=== PATIENT | male | born 1945 | race Caucasian/White ===

== ENCOUNTER 2017-05-19 12:29 | Outpatient (CLI) | payer MEDICARE | END 2017-05-19 12:30 | disposition home or self-care (01) | LOC: CP 12:29 | PROVIDERS: ATTEND Family Medicine | DX: R06.02 Shortness of breath (principal); R53.1 Weakness; R53.83 Other fatigue; I08.3 Combined rheumatic disorders of mitral, aortic and tricuspid valves | CPT/HCPCS: 93306 ==

== ENCOUNTER 2017-08-25 06:00 | Day surgery (SDC) | payer MEDICARE, OTHER ==
[2017-08-24 15:53] VITALS: BMI 28.7
[2017-08-25] MEDS ORDERED: Lidocaine 1% (PF) 30 ML VIAL ONE (06:28)
[2017-08-25 06:57] LABS: Cardiac Risk 2.9 (Less than 4.5)
[2017-08-25] MEDS ORDERED: Diazepam 5 MG TAB ONE (07:43)
[2017-08-25] MEDS ORDERED: Heparin 10,000 UNITS/1 ML VIAL ONE (07:55)
[2017-08-25] MEDS ORDERED: Verapamil 5 MG/2 ML VIAL ONE (07:55)
[2017-08-25] MEDS ORDERED: Nitroglycerin 100MG/250ML BOT 250 ML ONE (07:55)
[2017-08-25] MEDS ORDERED: Iopamidol 370 76% 100 ML VIAL ONE (11:07)
== END 2017-08-25 13:50 | disposition home or self-care (01) ==
LOC: CCL 06:00
PROVIDERS: ATTEND Internal Medicine Cardiovascular Disease
PROC: 4A023N8 Measurement of Cardiac Sampling and Pressure, Bilateral, Percutaneous Approach (ICD-10-PCS; principal; 2017-08-25)
PROC: B2111ZZ Fluoroscopy of Multiple Coronary Arteries using Low Osmolar Contrast (ICD-10-PCS; 2017-08-25)
DX: I25.10 Atherosclerotic heart disease of native coronary artery without angina pectoris (principal); Z79.82 Long term (current) use of aspirin; Z79.899 Other long term (current) drug therapy
CPT/HCPCS: 80061; 93454; C1769 ×2; J1644; J2001

== ENCOUNTER 2018-09-15 13:53 | Outpatient (CLI) | payer MEDICARE, OTHER ==
--- NOTE | 2018-09-15 15:04 | BD ---
DEXA BONE DENSITY EXAM: COMPARISON: None. HISTORY: A 72-year-old male with osteoporosis. FINDINGS: Lumbar Spine: BMD (g/cm2) L1 0.820 T-Score: -2.3 L2 0.819 T-Score: -2.5 L3 0.887 T-Score: -2.0 L4 0.917 T-Score: -1.6 L1-L4 0.866 T-Score: -2.0 Femoral Neck: 0.613 T-Score: -2.3 Total Femur: 0.767 T-Score: -1.8 Impression: Osteopenia. This patient has a 10-year WHO fracture risk for a major osteoporotic fracture of 9.2% a nd of a hip fracture of 3.1%. POS: TPC
== END 2018-09-15 13:54 | disposition home or self-care (01) ==
LOC: BICMAMMO 13:53
PROVIDERS: ATTEND Psychiatry & Neurology Neurology
DX: M81.0 Age-related osteoporosis without current pathological fracture (principal); M85.89 Other specified disorders of bone density and structure, multiple sites
CPT/HCPCS: 77080

== ENCOUNTER 2018-11-21 16:57 | Inpatient (IN) | payer MEDICARE, OTHER ==
[~2018-11-21 16:57] MED LIST: Heparin 1,000 UNITS/ML VIAL ONE; ISOVUE-370 76%-LOCM 1 ML ONE
[2018-11-21 18:34] LABS: Hemoglobin 12.2 g/dL (14.0-18.0); Mean Corpuscular HGB CONC 32.7 g/dL (32.0-36.0); Mean Corpuscular Hemoglobin 33.3 pg (27.0-31.0); Mean Platelet Volume 8.9 fL (7.4-10.4); Platelet Count 141 thou/uL (130-400); RBC Distribution Width 14.1 % (11.5-14.5); Red Blood Cell (RBC) Count 3.67 mill/uL (4.70-6.10); White Blood Cell (WBC) Count 11.4 thou/uL (4.8-10.8)
[2018-11-21 18:47] LABS: Band 28 % (5-11); Dohle Bodies SLIGHT; Lymphocytes 2 % (21-51); MDiff Complete? YES; Metamyelocyte 8 % (0-0); Monocytes 2 % (0-10); Neutrophil 60 % (42-75); Platelet Morphology Comment Appears Adequate; Polychromasia SLIGHT = 2-3 cells (100X) (0-2/hpf); Toxic Granulation SLIGHT; Vacuoles SLIGHT
[2018-11-21 19:08] LABS: ALT (SGPT) 55 U/L (8-55); AST (SGOT) 57 U/L (5-34); Alkaline Phosphatase 181 U/L (40-150); Anion Gap 18 mmol/L (10-20); BUN (Urea Nitrogen) 23 mg/dL (8.4-25.7); CK (CPK) 29 U/L (30-200); Calc. Creatinine Clearance 0 mL/min (70-130); Calcium 8.6 mg/dL (7.8-10.44); Carbon Dioxide 19 mmol/L (23-31); Chloride 102 mmol/L (98-107); Estimated GFR-MDRD 79; Glucose 112 mg/dL (83-110); Potassium 4.9 mmol/L (3.5-5.1); Sodium 134 mmol/L (136-145)
[2018-11-21 19:12] LABS: Bilirubin Moderate (Negative); Blood, Urine Large (Negative); Clarity TURBID (Clear); Glucose, Urine (Dipstick) Negative (Negative); Leukocyte Large (Negative); Nitrite Positive (Negative); Protein, Urine (Dipstick) 100 mg/dL (Neg-Trace)
[2018-11-21 19:17] LABS: Bacteria/HPF 4+ HPF (None Seen); Squamous Epithelial 0-3 HPF (0-3); WBC/HPF Greater Than 50 HPF (0-3)
[2018-11-21 19:21] LABS: Pathc Cast-AUWi Flag 9.09 (0-2.49)
[2018-11-21 19:31] LABS: Hyaline Casts/LPF 0-3 HYALINE CAST LPF (0-3 Hyaline)
--- NOTE | 2018-11-21 19:45 | RAD ---
EXAM: 3 views of the right foot HISTORY: Foot pain and sepsis COMPARISON: None FINDINGS: 3 views of the right foot shows no evidence of acute fracture or dislocation. No soft tissu e swelling is seen. Degenerative changes are seen in the DIP joint of the second toe and in the interphalangeal joint of the small toe. IMPRESSION: No evidence of acute osseous abnormality.
[2018-11-21] MEDS ORDERED: cefTRIAXone\\ROCEPHIN 1 GM VIAL ONE (20:22)
--- NOTE | 2018-11-21 21:55 | ULT ---
EXAM: Right lower extremity venous ultrasound HISTORY: Right lower extremity pain and edema for 2 weeks COMPARISON: None TECHNIQUE: Multiplanar grayscale and color Doppler images were obtained in a right lower extremity ve nous ultrasound. Spectral analysis of the Doppler waveforms were performed. FINDINGS: The common femoral vein, profunda femoral vein, superficial femoral vein, and popliteal vei n are normal in appearance without visible thrombus. These vessels demonstrate normal compression, flow, and augmentation. The posterior tibial vein and greater saphenous vein are patent without evidence of thrombus. IMPRESSION: No evidence of DVT.
--- NOTE | 2018-11-21 22:27 | CT ---
CT Abdomen Pelvis W Con: 11/21/2018 12:00 AM CLINICAL INFORMATION: Feet swelling and back pain since Wednesday; abdominal bloating COMPARISON: None. TECHNIQUE: Multiple contiguous axial images were obtained and a CT of the abdomen and pelvis with IV contrast. Oral contrast was administered. Coronal reformats were performed. FINDINGS: Lower Chest: Moderate hiatal hernia. Otherwise, within normal limits. Abdomen: Liver: within normal limits. Bile Ducts: Normal caliber. Gallbladder: Absent Pancreas: within normal limits. Spleen: within normal limits. Adrenals: within normal limits. Kidneys: 6.9 cm hypodensity emanating from the right kidney likely represents a cyst. Pelvis: Reproductive Organs: No pelvic masses. Ureters: within normal limits. Bladder: within normal limits. Peritoneum: No ascites or free air, no fluid collection. Bowel: Normal caliber. Scattered diverticula in the colon. There is subtle stranding changes adjacent to some of the diverticula in the left colon, likely secondary to mild acute diverticulitis. Mesentery and Retroperitoneum: No enlarged mesenteric or retroperitoneal lymph nodes. Vessels: Atherosclerotic calcifications in the aorta Abdominal Wall: within normal limits. Bones: Degenerative changes in the spine. IMPRESSION: 1. Acute diverticulitis 2. Right renal cyst 3. Hiatal hernia
--- NOTE | 2018-11-21 23:06 | PDOC.FPRHP ---
- History of Present Illness Chief Complaint: Back Pain and inability to walk History of Present Illness: 72 y/o white male patient, with a Hx of cholecystitis X2 months ago, S/P cholecystectomy, COPD and Myasthenia Gravis, presents with X2 days of debilitating back pain. He states the pain is a 9/10, non-radiating pain in his bilateral lower back. The pain is alleviated by lying flat, and exacerbated by any movement. While lying in the ED bed, his pain is a 0/10. Patient complains of bilateral lower extremity swelling that started Wednesday morning, and alleviated with elevation of his legs. He has taken tramadol and a muscle relaxant for the back pain. He denies any abdominal pain, nausea, vomiting, or diarrhea. Last BM was yesterday, and was normal. Patient denies any bloody stools. He complains of feeling bloated in his abdomen. Denies any chest pain. Complains of a baseline shortness of breath that he always has. He also complains of a burning sensation upon urination. The patient was admitted for Cholecystitis while in [place], September 28. He was in the hospital there for X10 days, eventually requiring a cholecystectomy. He was septic and placed in a medically induced coma while there. A physician placed him on diflucan while there to treat a suspected fungal infection of the right foot. Patient is still on Diflucan. October 21 he was admitted to in patient rehab here at [facility], and discharged from there on October 31. ED Course: Patient was fluid resuscitated with 2L NS and given [address] abdomen showed non-complicated acute diverticulitis. UA revealed UTI, cultures ordered. - Allergies/Adverse Reactions Allergies Allergy/AdvReac Type Severity Reaction Status Date / Time No Known Allergies Allergy Verified 08/24/17 15:53 - Home Medications Medication Instructions Recorded Confirmed Type Aspirin [Ecotrin] 81 mg PO DAILY 08/24/17 11/22/18 History Cholecalciferol (Vitamin D3) 1,000 unit PO DAILY 08/24/17 11/22/18 History [Vitamin D3] Cyanocobalamin (Vitamin B-12) 2,500 mcg PO DAILY 08/24/17 11/22/18 History [Vitamin B12] Magnesium 100 mg PO DAILY 08/24/17 11/22/18 History [place]-3 Fatty Acids/Fish Oil [Fish 1 cap PO DAILY 08/24/17 11/22/18 History Oil 1,000 mg Capsule] Pantoprazole [Protonix] 40 mg PO BID 08/24/17 11/22/18 History Simvastatin [Zocor] 40 mg PO HS 08/24/17 11/22/18 History predniSONE 60 mg PO ASDIR 08/24/17 11/22/18 History Carvedilol 3.125 mg PO BID 11/22/18 11/22/18 History - History PMHx: COPD, Myasthenia Gravis, Shingles, CAD PSHx: Cholecystectomy 2019, Aortic Valve Replacement 15 months ago, with Thymectomy. Bilateral knee surgery, R-shoulder surgery. Coronary artery stent in 2003 FHx: Social: lifetime non-smoker. Drinks 2-3 glasses of wine, 2-3 times weekly. Denies any recreational drug use now or in the past. - Review of Systems General: reports: fatigue. denies: weight/appetite/sleep changes Eyes: denies: eye pain ENT: denies: nasal congestion Respiratory: reports: shortness of breath. denies: congestion Cardiovascular: reports: edema. denies: chest pain Gastrointestinal: denies: nausea, vomiting, diarrhea, constipation, abdominal pain, GI bleeding Genitourinary: reports: dysuria Musculoskeletal: reports: pain, tenderness, stiffness, swelling Neurological: reports: weakness. denies: seizure - Vital signs BP: [105/67] HR: [84] RR: [22] Tmax: [98.3] Pox: [95]% on [RA] Wt: [] - Physical Exam Constitutional: NAD, awake, alert and oriented, well developed HEENT: normocephalic and atraumatic, PERRLA -HEENT: scleral icterus present Neck: supple, trachea midline Chest: no-tender to palpation, no lesions Heart: RRR, normal S1/S2 Lungs: CTAB, no respiratory distress, good air movement Abdomen: bowel sounds present -Abdomen: Distended abdomen. Tenderness to deep palpation of RLQ and LLQ. Musculoskeletal: normal structure, normal tone Neurological: no focal deficit Skin: no rash/lesions, capillary refill <2 seconds -Skin: jaundice Heme/Lymphatic: no unusual bruising or bleeding Psychiatric: normal mood and affect, intact recent and remote memory FMR H&P: Results - Labs Result Diagrams: 11/22/18 04:53 11/22/18 04:53 Lab results: WBC 11.4 thou/uL (4.8-10.8) H 11/21/18 18:11 Hgb 12.2 g/dL (14.0-18.0) L 11/21/18 18:11 Hct 37.3 % (42.0-52.0) L 11/21/18 18:11 MCV 102.0 fL (78.0-98.0) H 11/21/18 18:11 Plt Count 141 thou/uL (130-400) 11/21/18 18:11 Band Neuts % (Manual) 28 % (5-11) H 11/21/18 18:11 Sodium 134 mmol/L (136-145) L 11/21/18 18:11 Potassium 4.9 mmol/L (3.5-5.1) 11/21/18 18:11 Chloride 102 mmol/L (98-107) 11/21/18 18:11 Carbon Dioxide 19 mmol/L (23-31) L 11/21/18 18:11 BUN 23 mg/dL (8.4-25.7) 11/21/18 18:11 Creatinine 0.94 mg/dL (0.7-1.3) 11/21/18 18:11 Glucose 112 mg/dL (83-110) H 11/21/18 18:11 Lactic Acid 3.6 mmol/L (0.5-2.2) H 11/21/18 19:01 Calcium 8.6 mg/dL (7.8-10.44) 11/21/18 18:11 Total Bilirubin 3.0 mg/dL (0.2-1.2) H 11/21/18 18:11 AST 57 U/L (5-34) H 11/21/18 18:11 ALT 55 U/L (8-55) 11/21/18 18:11 Alkaline Phosphatase 181 U/L (40-150) H 11/21/18 18:11 Creatine Kinase 29 U/L (30-200) L 11/21/18 18:11 Serum Total Protein 6.0 g/dL (5.8-8.1) 11/21/18 18:11 Albumin 3.0 g/dL (3.4-4.8) L 11/21/18 18:11 Urine Ketones Trace mg/dL (Negative) H 11/21/18 Unknown Urine Blood Large (Negative) H 11/21/18 Unknown Urine Nitrite Positive (Negative) H 11/21/18 Unknown Ur Leukocyte Esterase Large (Negative) H 11/21/18 Unknown Urine RBC 7-10 HPF (0-3) H 11/21/18 Unknown Urine WBC Greater Than 50 HPF (0-3) H 11/21/18 Unknown Ur Squamous Epith Cells 0-3 HPF (0-3) 11/21/18 Unknown Urine Bacteria 4+ HPF (None Seen) H 11/21/18 Unknown FMR H&P: A/P - Problem List (1) Sepsis secondary to UTI Current Visit: Yes Status: Acute Code(s): A41.9 - SEPSIS, UNSPECIFIED ORGANISM; N39.0 - URINARY TRACT INFECTION, SITE NOT SPECIFIED (2) Acute diverticulitis Current Visit: Yes Status: Acute Code(s): K57.92 - DVTRCLI OF INTEST, PART UNSP, W/O PERF OR ABSCESS W/O BLEED Comment: noncomplicated, without abscess or bleeding (3) Elevated LFTs Current Visit: Yes Status: Acute Code(s): R94.5 - ABNORMAL RESULTS OF LIVER FUNCTION STUDIES (4) Hyperbilirubinemia Current Visit: Yes Status: Acute Code(s): E80.6 - OTHER DISORDERS OF BILIRUBIN METABOLISM (5) Myasthenia gravis in remission Current Visit: Yes Status: Chronic Code(s): G70.00 - MYASTHENIA GRAVIS WITHOUT (ACUTE) EXACERBATION (6) CAD (coronary artery disease) Current Visit: Yes Status: Chronic Code(s): I25.10 - ATHSCL HEART DISEASE OF [place] CORONARY ARTERY W/O ANG PCTRS Qualifiers: [place] vs. transplanted heart: [place] heart Associated angina: without angina (7) Foot ulcer Current Visit: Yes Status: Acute Code(s): L97.509 - NON-PRESSURE CHRONIC ULCER OTH PRT UNSP FOOT W UNSP SEVERITY (8) COPD (chronic obstructive pulmonary disease) Current Visit: Yes Status: Chronic (9) BPH (benign prostatic hyperplasia) Current Visit: Yes Status: Chronic Code(s): N40.0 - BENIGN PROSTATIC HYPERPLASIA WITHOUT LOWER URINRY TRACT SYMP (10) Macrocytic anemia Current Visit: Yes Status: Chronic Code(s): D53.9 - NUTRITIONAL ANEMIA, UNSPECIFIED - Plan 1. Sepsis secondary to UTI and Diverticulitis 2. Non-complicated Acute Diverticulitis, without abscess or perforation. Start Rocephin 2 g Q 24h, and Flagyl 500 mg TID. Clear liquid diet. Motrin for pain control. 3. UTI. Antibiotic therapy with rocephin and flagyl. Urine and blood cultures ordered. 4. Elevated LFT's and hyperbilirubinemia. AST 57, ALT 55, Bilirubin 3.0, Alk Phos 181. Ordered coagulation studies, Hep A/B/C, and RUQ abdominal ultrasound. Discontinue Diflucan that was prescribed in [place] for possible fungal infection of right foot, as this may be elevating the LFT's. 5. right foot stage 2 decubitus ulcer. consult wound care. 6. COPD, continue home Symbicort. 7. Myasthenia Gravis, continue Prednisone 60 mg daily. 8. CAD, continue home medications. 9. BPH, continue Flomax. 10. Chronic Macrocytic Anemia. Hemodynamically stable and asymptomatic. 11. Full code 12. PPX SCD's 13. Clear liquid diet. FMR H&P: Upper Level - Pertinent history 72 yo M w/ here with complaint of back pain for the past 2 days. No hx of trauma or obvious inciting event. In September of this year he was admitted for septic shock related to cholecystitis in [place] and was intubated and sedated following cholecystectomy for 10 days. Upon returning to the he went to inpatient rehab for from October 20-October 31. While in the ED he was found to be hypotensive with an elevated WBC count and left shift. BP was responsive to IVF. UA was concerning for UTI thus pt was given Rocephin. CTA abdomen also found sigmoid diverticulitis. See international sales manager note for full ROS and PE General denies fever/chills CV denies CP or palpitations, complains of LE edema Resp denies cough, SOB Abd complains of LLQ and RLQ pain. Denies n/v/d/c complains of dysuria MSK complains of LBP - Pertinent findings See international sales manager note for vitals and lab values PE General A&O x4, no acute distress HEENT NCAT CV RRR, no murmur Resp CTA b/l Abd distended w/LLQ and RLQ TTP. Questionable CVAT. No fluid wave Extremities b/l pitting edema to ankle. - Plan Date/Time: 11/21/182252 I, Francis Aguila DO, have evaluated this patient and agree with findings/plan as outlined by international sales manager resident. Pertinent changes/additions are listed here. A/P 73 yo M being admitted for sepsis secondary to UTI and diverticulitis 1.Diverticulitis -No abscess or free air on CT, will manage medically at this time. -IV Flagyl and Rocephin -Blood cx pending -Motrin for pain -Diet: clears 2.UTI -Urine cx pending, abx as above -Likely secondary to retention from BPH. Continue home Flomax 3.Elevated LFT -Most likely etiology related to oral antifungals started within the past few weeks -Monitor CMP in am -Dt travel r/o infectious etiology -RUQ US See international sales manager portion for chronic problem management Addendum - Attending - Attending Attestation Date/Time: 11/22/181952 I personally evaluated the patient and discussed the management with Dr. Freeman on 11/21/2018 I agree with the History, Examination, Assessment and Plan documented above with any addition or exceptions noted below - 72 y/o white male patient, with a h/o COPD and Myasthenia Gravis and cholecystectomy 2 momths ago for cholecystitis, presents with X 2 days of back pain. He states the pain is a 9/ 10, non-radiating pain in his bilateral lower back L>R. The pain is alleviated by lying flat, and exacerbated by any movement. He denies any abdominal pain, vomiting, or diarrhea. (+) nausea and decreased appetite. Last BM was yesterday , and was normal. He complains of feeling bloated in his abdomen. Also complains of dysuria. Denies any fever/chills. PMH/PSH/All/Meds/SH reviewed and agree with resident's documentation. Afebrile VSS. Exam repeated by me and agree with resident's findings. Labs: WBC=11.4, H/H=12.3/37.3, Yfx=014, Diff=60N /28B/2L, YD=247, K=4.9, Gw=704, CO2=19, BUN/Cr=23/0.94, Zmfc=695, Lactic acid= 3.6, T. bili=3.0, AST=57, ALT=55, Alk phos=81, U/A= 1+prot, lg blood, (+) nitrite, mod bili, lg LE, 7-10 RBC, >50 WBC, 4+ bact; CT abd left sided diverticulitis A/P: 1) Sepsis secondary to diverticulitis and UTI- Admit to medical. Continue rocephin and flagyl. Blood and urine cultures pending. 2) Hypotension - resolved with fluids. Continue to monitor. 3) COPD -continue home meds 4) Myasthenia gravis- continue home steroids
[2018-11-21] MEDS ORDERED: Ibuprofen 600 MG TAB PO PRN (23:16)
[2018-11-22 00:24] LABS: INR-International Normal Ratio 1.2; PTT 24.6 SEC (22.9-36.1)
[2018-11-22 00:34] LABS: Lactic Acid 2.3 mmol/L (0.5-2.2)
[2018-11-22 00:58] LABS: Syphilis Antibody Nonreactive (Nonreactive); Syphilis Antibody Index 0.03 S/CO (<1.00 Non-Reactive)
[2018-11-22 00:59] LABS: HBSAB Concentration 1.91 mIU/mL; HBSAg Index 0.28 S/CO (0-0.99); HIV (1/2) Antibody/Antigen Non-Reactive (NonReactive); HIV 1/2 INDEX 0.18 S/CO (<1.00); Hep B Surf AB Non-Reactive (NonReactive); Hep B Surf Ag Non-Reactive S/CO (NonReactive); Hep C IgG Ab Non-Reactive (NonReactive); Hep C Index 0.03 S/CO (0-0.79)
[2018-11-22] MEDS: Lactated Ringer's 1,000 ML IV SCH ×3 (01:03→14:24)
[2018-11-22 01:57] VITALS: BMI 26.2
[2018-11-22 05:37] LABS: Lactic Acid 1.3 mmol/L (0.5-2.2)
[2018-11-22 05:44] LABS: ALT (SGPT) 48 U/L (8-55); AST (SGOT) 42 U/L (5-34); Albumin 2.6 g/dL (3.4-4.8); Alkaline Phosphatase 149 U/L (40-150); Anion Gap 12 mmol/L (10-20); BUN (Urea Nitrogen) 23 mg/dL (8.4-25.7); Bilirubin, Total 1.8 mg/dL (0.2-1.2); Calc. Creatinine Clearance 104 mL/min (70-130); Calcium 7.9 mg/dL (7.8-10.44); Carbon Dioxide 24 mmol/L (23-31); Chloride 103 mmol/L (98-107); Estimated GFR-MDRD Greater than 90; Globulin 2.6 g/dL (2.4-3.5); Glucose 108 mg/dL (83-110); Potassium 4.3 mmol/L (3.5-5.1); Protein, Total 5.2 g/dL (5.8-8.1); Sodium 135 mmol/L (136-145)
[2018-11-22 05:52] LABS: Band 30 % (5-11); Hemoglobin 10.4 g/dL (14.0-18.0); Lymphocytes 7 % (21-51); MDiff Complete? YES; Mean Corpuscular HGB CONC 33.2 g/dL (32.0-36.0); Mean Corpuscular Hemoglobin 33.3 pg (27.0-31.0); Mean Platelet Volume 9.2 fL (7.4-10.4); Monocytes 1 % (0-10); Neutrophil 62 % (42-75); Platelet Count 96 thou/uL (130-400); Platelet Morphology Comment Appears Decreased; RBC Distribution Width 14.1 % (11.5-14.5); Red Blood Cell (RBC) Count 3.13 mill/uL (4.70-6.10); White Blood Cell (WBC) Count 9.7 thou/uL (4.8-10.8)
--- NOTE | 2018-11-22 07:36 | ULT ---
RIGHT UPPER QUADRANT ULTRASOUND: Date: 11/22/18 INDICATION: History of elevated LFTs, abdominal bloating, and recent cholecystectomy. TECHNIQUE: Henson scale, color Doppler, and spectral Doppler images were obtained. COMPARISON: Prior CT of the abdomen and pelvis dated 11/21/18. FINDINGS: The gallbladder is surgically absent. No focal hepatic lesion is evident. Pancreas largely obscured b y overlying bowel gas. Visualized aspects of the pancreatic head are unremarkable appearing. Common b ile duct measures 6 mm. Right kidney measures 11.5 cm. There is a large, 4.8 x 5.6 x 4.9 cm, cyst inv olving the anterior aspect of the right mid kidney. No hydronephrosis is evident. No free fluid is id entified. IMPRESSION: 1. Cholecystectomy. 2. Right renal cyst. POS: BH
[2018-11-22] MEDS ORDERED: Senokot S 8.6-50 MG TAB PO PRN (07:47)
[2018-11-22] MEDS ORDERED: Loperamide HCl 2 MG CAP PO PRN (07:47)
[2018-11-22] MEDS ORDERED: Cepastat Lozenges 1 LOZ PO PRN (07:47)
[2018-11-22] MEDS ORDERED: hydrALAZINE 20 MG/ML VIAL SLOW IVP PRN (07:47)
[2018-11-22] MEDS ORDERED: Bisacodyl 10 MG SUPP PR PRN (07:47)
[2018-11-22] MEDS ORDERED: Sodium Chloride 0.65% Nasal 44 ML BOT EA NARE PRN (07:47)
[2018-11-22] MEDS ORDERED: Temazepam 15 MG CAP PO PRN (07:47)
[2018-11-22] MEDS ORDERED: Ondansetron PF 4 MG/2 ML Vial IVP PRN (07:47)
[2018-11-22] MEDS ORDERED: Loratadine 10 MG TAB PO PRN (07:47)
[2018-11-22] MEDS ORDERED: Artificial Tears 18 DROP/0.9 ML EA EYE PRN (07:47)
[2018-11-22] MEDS ORDERED: Diabetic Tussin 200 MG/10 ML UDCUP PO PRN (07:47)
[2018-11-22] MEDS ORDERED: Ondansetron ODT 4 MG TAB PO PRN (07:47)
[2018-11-22] MEDS ORDERED: Calcium Carbonate 500 MG ChewTAB PO PRN (07:47)
[2018-11-22] MEDS ORDERED: predniSONE 20 MG TAB PO SCH (08:00)
[2018-11-22] MEDS ORDERED: metroNIDAZOLE 500 MG TAB PO SCH (09:00)
[2018-11-22] MEDS: Fish Oil 1,000 MG CAP PO SCH (09:08)
[2018-11-22] MEDS: Cyanocobalamin (Vitamin B-12) 1,000 MCG TAB PO SCH (09:08)
[2018-11-22] MEDS: Aspirin 81 mg Enteric Coated Tablet PO SCH (09:08)
[2018-11-22] MEDS: Piperacillin/Tazobactam 4.5 GM in Sodium Chloride 0.9% 100 ML IVPB SCH ×3 (11:36→23:51)
--- NOTE | 2018-11-22 12:29 | PDOC.PN ---
- Subjective Encounter Start Date: 11/22/18 Encounter Start Time: 09:00 Patient seen and examined. No new complaints. No overnight events, pt denies abdominal pain, no diarrhoea - Objective Resuscitation Status - Order Detail: 11/21/18 22:56 Resuscitation Status Routine Co-Sign Provider: Resuscitation Status: FULL: Full Resuscitation Discussed with: patient MAR Reviewed: Yes Vital Signs & Weight: Vital Signs (12 hours) Temp Pulse Resp BP Pulse Ox 11/22/18 07:25 98.4 F 90 20 109/69 92 L 11/22/18 04:14 99.5 F 92 20 98/65 97 Weight Weight 199 lb I&O: 11/21/18 11/22/18 11/23/18 06:59 06:59 06:59 Intake Total 1115 Balance 1115 Result Diagrams: 11/22/18 04:53 11/22/18 04:53 Radiology Reviewed by me: Yes Phys Exam - Physical Examination Constitutional: NAD HEENT: PERRLA, moist MMs, sclera anicteric Neck: no JVD, supple Respiratory: no wheezing, no rales, no rhonchi Cardiovascular: RRR, no significant murmur, no rub Gastrointestinal: soft, non-tender, no distention, positive bowel sounds Musculoskeletal: no edema, pulses present Neurological: non-focal, normal sensation, moves all 4 limbs Psychiatric: normal affect, A&O x 3 Skin: no rash, normal turgor Dx/Plan (1) Acute diverticulitis Code(s): K57.92 - DVTRCLI OF INTEST, PART UNSP, W/O PERF OR ABSCESS W/O BLEED Status: Acute Comment: noncomplicated, without abscess or bleeding (2) Elevated LFTs Code(s): R94.5 - ABNORMAL RESULTS OF LIVER FUNCTION STUDIES Status: Acute (3) Foot ulcer Code(s): L97.509 - NON-PRESSURE CHRONIC ULCER OTH PRT UNSP FOOT W UNSP SEVERITY Status: Acute (4) Hyperbilirubinemia Code(s): E80.6 - OTHER DISORDERS OF BILIRUBIN METABOLISM Status: Acute (5) Lactic acidosis Code(s): E87.2 - ACIDOSIS Status: Acute (6) Sepsis secondary to UTI Code(s): A41.9 - SEPSIS, UNSPECIFIED ORGANISM; N39.0 - URINARY TRACT INFECTION, SITE NOT SPECIFIED Status: Acute (7) Sepsis with acute organ dysfunction Code(s): A41.9 - SEPSIS, UNSPECIFIED ORGANISM; R65.20 - SEVERE SEPSIS WITHOUT SEPTIC SHOCK Status: Acute (8) Thrombocytopenia Code(s): D69.6 - THROMBOCYTOPENIA, UNSPECIFIED Status: Acute (9) BPH (benign prostatic hyperplasia) Code(s): N40.0 - BENIGN PROSTATIC HYPERPLASIA WITHOUT LOWER URINRY TRACT SYMP Status: Chronic (10) CAD (coronary artery disease) Code(s): I25.10 - ATHSCL HEART DISEASE OF [place] CORONARY ARTERY W/O ANG PCTRS Status: Chronic Qualifiers: [place] vs. transplanted heart: [place] heart Associated angina: without angina (11) COPD (chronic obstructive pulmonary disease) Status: Chronic (12) Macrocytic anemia Code(s): D53.9 - NUTRITIONAL ANEMIA, UNSPECIFIED Status: Chronic (13) Myasthenia gravis in remission Code(s): G70.00 - MYASTHENIA GRAVIS WITHOUT (ACUTE) EXACERBATION Status: Chronic - Plan cont current plan of care, plan discussed w/ family, continue antibiotics, PT/OT , social media content specialist * will change to zosyn and flagyl * add florastor * get chest xray * duoneb as needed * discussed with daughter and answered all her questions * home medication reconciled * medication reviewed as below * symptomatic treatment. * repeat labs tomorrow Review of Systems - Review of Systems Constitutional: weakness, malaise. negative: fever, chills, sweats, other ENT: negative: Ear Pain, Ear Discharge, Nose Pain, Nose Discharge, Nose Congestion, Mouth Pain, Mouth Swelling, Throat Pain, Throat Swelling, Other Respiratory: negative: Cough, Dry, Shortness of Breath, Hemoptysis, SOB with Excertion, Pleuritic Pain, Sputum, Wheezing Cardiovascular: negative: chest pain, palpitations, orthopnea, paroxysmal nocturnal dyspnea, edema, light headedness, other Gastrointestinal: negative: Nausea, Vomiting, Abdominal Pain, Diarrhea, Constipation, Melena, Hematochezia, Other Genitourinary: negative: Dysuria, Frequency, Incontinence, Hematuria, Retention , Other Musculoskeletal: negative: Neck Pain, Shoulder Pain, Arm Pain, Back Pain, Hand Pain, Leg Pain, Foot Pain, Other Skin: negative: Rash, Lesions, Calvin, Bruising, Other - Medications/Allergies Allergies/Adverse Reactions: Allergies Allergy/AdvReac Type Severity Reaction Status Date / Time No Known Allergies Allergy Verified 08/24/17 15:53 Medications: Current Medications Hydrocodone Bitart/Acetaminophen ([place] 5/325) 1 tab PO Q4H PRN PRN Reason: Moderate Pain (4-6) Albuterol/Ipratropium (Duoneb) 3 ml NEB [id number] PRN PRN Reason: SOB &/or Wheezing Artificial Tears (Tears Naturale) 2 drop EA EYE PRN PRN PRN Reason: Dry Eyes Aspirin (Ecotrin) 81 mg PO DAILY [facility] Last Admin: 11/22/18 09:08 Dose: 81 mg Bisacodyl (Dulcolax) 10 mg NE DAILYPRN PRN PRN Reason: Constipation Calcium Carbonate (Tums) 1,000 mg PO Q4H PRN PRN Reason: Heartburn or Indigestion Cholecalciferol (Vitamin D3) 1,000 units PO DAILY [facility] Last Admin: 11/22/18 09:08 Dose: 1,000 units Cyanocobalamin (Vitamin B-12) 2,500 mcg PO DAILY [facility] Last Admin: 11/22/18 09:08 Dose: 2,500 mcg Fish Oil (Fish Oil) 1,000 mg PO DAILY [facility] Last Admin: 11/22/18 09:08 Dose: 1,000 mg Guaifenesin (Robitussin Sf) 200 mg PO Q4H PRN PRN Reason: Cough Hydralazine HCl (Apresoline) 10 mg SLOW IVP Q4H PRN PRN Reason: SBP > 180 and HR < 70 Lactated Ringer's (Lactated Ringer's) 1,000 mls @ 125 mls/hr IV .Q8H [facility] Last Admin: 11/22/18 09:07 Dose: 1,000 mls Piperacillin Sod/Tazobactam (Sod 4.5 gm/ Sodium Chloride) 100 mls @ 200 mls/hr IVPB Q6HR [facility] Last Admin: 11/22/18 11:36 Dose: 100 mls Metronidazole 500 mg/ Device 100 mls @ 100 mls/hr IVPB Q8HR [facility] Loperamide HCl (Imodium) 2 mg PO PRN PRN PRN Reason: Diarrhea/Loose Stools Loratadine (Claritin) 10 mg PO DAILYPRN PRN PRN Reason: Sinus Symptoms Ondansetron HCl (Zofran Odt) 4 mg PO Q6H PRN PRN Reason: Nausea/Vomiting Ondansetron HCl (Zofran) 4 mg IVP Q6H PRN PRN Reason: Nausea/Vomiting Pantoprazole Sodium (Protonix) 40 mg PO BID [facility] Last Admin: 11/22/18 09:08 Dose: 40 mg Prednisone (Prednisone) 60 mg PO QA-[facility] Saccharomyces Boulardii (Florastor) 250 mg PO DAILY [facility] Senna/Docusate Sodium (Senokot S) 2 tab PO BID PRN PRN Reason: Constipation Sodium Chloride ([place] Nasal [place] 0.65%) 0 ml EA NARE QIDPRN PRN PRN Reason: Nasal Congestion Temazepam (Restoril) 15 mg PO HSPRN PRN PRN Reason: Insomnia Throat Lozenges (Cepastat Lozenges) 1 paige PO Q2H PRN PRN Reason: Sore Throat
--- NOTE | 2018-11-22 12:39 | RAD ---
RADIOGRAPH CHEST 1 VIEW: DATE: 11/22/2018 HISTORY: 72-year-old male with dyspnea FINDINGS: There is no airspace density, pulmonary edema, or pneumothorax. The lateral costophrenic angles are n ot effaced. Sternotomy wires. IMPRESSION: No acute pulmonary findings.
[2018-11-22] MEDS: metroNIDAZOLE 500 MG in Premix Bag 1 BAG IVPB SCH ×2 (14:24→21:11)
[2018-11-22] MEDS ORDERED: cefTRIAXone\\ROCEPHIN 2 GM in Sodium Chloride 0.9% 100 ML IVPB SCH (21:00)
[2018-11-23] MEDS: Lactated Ringer's 1,000 ML IV SCH ×2 (03:40→07:37)
[2018-11-23 05:09] LABS: Hepatitis A IgM ABS Negative (Negative); Hepatitis A Total ABS Negative (Negative)
[2018-11-23] MEDS: Piperacillin/Tazobactam 4.5 GM in Sodium Chloride 0.9% 100 ML IVPB SCH ×3 (05:32→17:25)
[2018-11-23] MEDS: metroNIDAZOLE 500 MG in Premix Bag 1 BAG IVPB SCH ×3 (05:33→20:49)
[2018-11-23 06:07] LABS: ALT (SGPT) 35 U/L (8-55); AST (SGOT) 24 U/L (5-34); Albumin 2.5 g/dL (3.4-4.8); Alkaline Phosphatase 129 U/L (40-150); Anion Gap 11 mmol/L (10-20); BUN (Urea Nitrogen) 22 mg/dL (8.4-25.7); Bilirubin, Total 0.9 mg/dL (0.2-1.2); CRP (Inflammatory) 28.55 mg/dL (= or < 0.5); Calc. Creatinine Clearance 107 mL/min (70-130); Calcium 8.5 mg/dL (7.8-10.44); Carbon Dioxide 27 mmol/L (23-31); Chloride 101 mmol/L (98-107); Estimated GFR-MDRD Greater than 90; Globulin 2.7 g/dL (2.4-3.5); Glucose 95 mg/dL (83-110); Potassium 4.1 mmol/L (3.5-5.1); Protein, Total 5.2 g/dL (5.8-8.1); Sodium 135 mmol/L (136-145)
[2018-11-23 06:14] LABS: Anisocytosis SLIGHT = 6-15 cells (100X) (0-5/hpf); Band 23 % (5-11); Hemoglobin 10.1 g/dL (14.0-18.0); Hypochromia SLIGHT = 6-15 cells (100X) (0-5/hpf); Lymphocytes 5 % (21-51); MDiff Complete? YES; Mean Corpuscular HGB CONC 31.7 g/dL (32.0-36.0); Mean Corpuscular Hemoglobin 32.1 pg (27.0-31.0); Mean Platelet Volume 9.3 fL (7.4-10.4); Monocytes 4 % (0-10); Neutrophil 68 % (42-75); Platelet Count 76 thou/uL (130-400); Platelet Morphology Comment Appears Decreased; RBC Distribution Width 13.8 % (11.5-14.5); Red Blood Cell (RBC) Count 3.15 mill/uL (4.70-6.10); White Blood Cell (WBC) Count 7.5 thou/uL (4.8-10.8)
[2018-11-23] MEDS: Saccharomyces boulardii 250 MG CAP PO SCH (09:38)
[2018-11-23] MEDS: Fish Oil 1,000 MG CAP PO SCH (09:38)
[2018-11-23] MEDS: Carvedilol 3.125 MG TAB PO SCH ×2 (09:39→20:45)
[2018-11-23] MEDS: Cyanocobalamin (Vitamin B-12) 1,000 MCG TAB PO SCH (09:39)
[2018-11-23] MEDS: Aspirin 81 mg Enteric Coated Tablet PO SCH (09:39)
[2018-11-23] MEDS: predniSONE 20 MG TAB PO SCH (09:40)
--- NOTE | 2018-11-23 11:03 | PDOC.PN ---
- Subjective Encounter Start Date: 11/23/18 Encounter Start Time: 09:20 - Objective Resuscitation Status - Order Detail: 11/21/18 22:56 Resuscitation Status Routine Co-Sign Provider: Resuscitation Status: FULL: Full Resuscitation Discussed with: patient TEODORO Reviewed: Yes Vital Signs & Weight: Vital Signs (12 hours) Temp Pulse Resp BP Pulse Ox 11/23/18 07:59 99.2 F 85 18 145/77 H 93 L 11/23/18 04:14 99.1 F 86 16 134/76 98 11/23/18 00:43 97.7 F 77 16 112/67 97 Weight Admit Weight 199 lb Weight 199 lb I&O: 11/22/18 11/23/18 11/24/18 06:59 06:59 06:59 Intake Total 3795 Balance 3795 Result Diagrams: 11/23/18 05:18 11/23/18 05:18 Phys Exam - Physical Examination Constitutional: NAD HEENT: PERRLA, moist MMs, sclera anicteric Neck: no JVD, supple Respiratory: no wheezing, no rales, no rhonchi Cardiovascular: RRR, no significant murmur, no rub Gastrointestinal: soft, non-tender, no distention, positive bowel sounds Musculoskeletal: no edema, pulses present wound right ankle with dressing Neurological: non-focal, normal sensation Lymphatic: no nodes Psychiatric: normal affect Skin: no rash, normal turgor Dx/Plan (1) Acute diverticulitis Code(s): K57.92 - DVTRCLI OF INTEST, PART UNSP, W/O PERF OR ABSCESS W/O BLEED Status: Acute Comment: noncomplicated, without abscess or bleeding (2) Elevated LFTs Code(s): R94.5 - ABNORMAL RESULTS OF LIVER FUNCTION STUDIES Status: Acute (3) Foot ulcer Code(s): L97.509 - NON-PRESSURE CHRONIC ULCER OTH PRT UNSP FOOT W UNSP SEVERITY Status: Acute (4) Hyperbilirubinemia Code(s): E80.6 - OTHER DISORDERS OF BILIRUBIN METABOLISM Status: Acute (5) Lactic acidosis Code(s): E87.2 - ACIDOSIS Status: Acute (6) Sepsis secondary to UTI Code(s): A41.9 - SEPSIS, UNSPECIFIED ORGANISM; N39.0 - URINARY TRACT INFECTION, SITE NOT SPECIFIED Status: Acute (7) Sepsis with acute organ dysfunction Code(s): A41.9 - SEPSIS, UNSPECIFIED ORGANISM; R65.20 - SEVERE SEPSIS WITHOUT SEPTIC SHOCK Status: Acute (8) Thrombocytopenia Code(s): D69.6 - THROMBOCYTOPENIA, UNSPECIFIED Status: Acute (9) BPH (benign prostatic hyperplasia) Code(s): N40.0 - BENIGN PROSTATIC HYPERPLASIA WITHOUT LOWER URINRY TRACT SYMP Status: Chronic (10) CAD (coronary artery disease) Code(s): I25.10 - ATHSCL HEART DISEASE OF [place] CORONARY ARTERY W/O ANG PCTRS Status: Chronic Qualifiers: [place] vs. transplanted heart: [place] heart Associated angina: without angina (11) COPD (chronic obstructive pulmonary disease) Status: Chronic (12) Macrocytic anemia Code(s): D53.9 - NUTRITIONAL ANEMIA, UNSPECIFIED Status: Chronic (13) Myasthenia gravis in remission Code(s): G70.00 - MYASTHENIA GRAVIS WITHOUT (ACUTE) EXACERBATION Status: Chronic - Plan cont current plan of care, plan discussed w/ family, continue antibiotics * medication reviewed as below * symptomatic treatment * continue zosyn and flagyl * discussed with daughter * follow culture * Consult ID. * positive blood culture is likely contaminant, bit will get ID opinion * will need placement on discharge Review of Systems - Review of Systems Constitutional: weakness. negative: fever, chills, sweats, malaise, other ENT: negative: Ear Pain, Ear Discharge, Nose Pain, Nose Discharge, Nose Congestion, Mouth Pain, Mouth Swelling, Throat Pain, Throat Swelling, Other Respiratory: negative: Cough, Dry, Shortness of Breath, Hemoptysis, SOB with Excertion, Pleuritic Pain, Sputum, Wheezing Cardiovascular: negative: chest pain, palpitations, orthopnea, paroxysmal nocturnal dyspnea, edema, light headedness, other Gastrointestinal: negative: Nausea, Vomiting, Abdominal Pain, Diarrhea, Constipation, Melena, Hematochezia, Other Genitourinary: negative: Dysuria, Frequency, Incontinence, Hematuria, Retention , Other Musculoskeletal: negative: Neck Pain, Shoulder Pain, Arm Pain, Back Pain, Hand Pain, Leg Pain, Foot Pain, Other - Medications/Allergies Allergies/Adverse Reactions: Allergies Allergy/AdvReac Type Severity Reaction Status Date / Time No Known Allergies Allergy Verified 08/24/17 15:53 Medications: Current Medications Hydrocodone Bitart/Acetaminophen ([place] 5/325) 1 tab PO Q4H PRN PRN Reason: Moderate Pain (4-6) Albuterol/Ipratropium (Duoneb) 3 ml NEB [id number] PRN PRN Reason: SOB &/or Wheezing Artificial Tears (Tears Naturale) 2 drop EA EYE PRN PRN PRN Reason: Dry Eyes Aspirin (Ecotrin) 81 mg PO DAILY [facility] Last Admin: 11/23/18 09:39 Dose: 81 mg Atorvastatin Calcium (Lipitor) 20 mg PO HS [facility] Bisacodyl (Dulcolax) 10 mg IN DAILYPRN PRN PRN Reason: Constipation Calcium Carbonate (Tums) 1,000 mg PO Q4H PRN PRN Reason: Heartburn or Indigestion Carvedilol (Coreg) 3.125 mg PO BID [facility] Last Admin: 11/23/18 09:39 Dose: 3.125 mg Cholecalciferol (Vitamin D3) 1,000 units PO DAILY [facility] Last Admin: 11/23/18 09:38 Dose: 1,000 units Cyanocobalamin (Vitamin B-12) 2,500 mcg PO DAILY [facility] Last Admin: 11/23/18 09:39 Dose: 2,500 mcg Fish Oil (Fish Oil) 1,000 mg PO DAILY [facility] Last Admin: 11/23/18 09:38 Dose: 1,000 mg Guaifenesin (Robitussin Sf) 200 mg PO Q4H PRN PRN Reason: Cough Hydralazine HCl (Apresoline) 10 mg SLOW IVP Q4H PRN PRN Reason: SBP > 180 and HR < 70 Piperacillin Sod/Tazobactam (Sod 4.5 gm/ Sodium Chloride) 100 mls @ 200 mls/hr IVPB Q6HR [facility] Last Admin: 11/23/18 05:32 Dose: 100 mls Metronidazole 500 mg/ Device 100 mls @ 100 mls/hr IVPB Q8HR [facility] Last Admin: 11/23/18 05:33 Dose: 100 mls Loperamide HCl (Imodium) 2 mg PO PRN PRN PRN Reason: Diarrhea/Loose Stools Loratadine (Claritin) 10 mg PO DAILYPRN PRN PRN Reason: Sinus Symptoms Ondansetron HCl (Zofran Odt) 4 mg PO Q6H PRN PRN Reason: Nausea/Vomiting Ondansetron HCl (Zofran) 4 mg IVP Q6H PRN PRN Reason: Nausea/Vomiting Pantoprazole Sodium (Protonix) 40 mg PO BID [facility] Last Admin: 11/23/18 09:39 Dose: 40 mg Prednisone (Prednisone) 60 mg PO QAM-WM [facility] Last Admin: 11/23/18 09:40 Dose: 60 mg Saccharomyces Boulardii (Florastor) 250 mg PO DAILY [facility] Last Admin: 11/23/18 09:38 Dose: 250 mg Senna/Docusate Sodium (Senokot S) 2 tab PO BID PRN PRN Reason: Constipation Sodium Chloride ([place] Nasal [place] 0.65%) 0 ml EA NARE QIDPRN PRN PRN Reason: Nasal Congestion Temazepam (Restoril) 15 mg PO HSPRN PRN PRN Reason: Insomnia Throat Lozenges (Cepastat Lozenges) 1 paige PO Q2H PRN PRN Reason: Sore Throat
[2018-11-23] MEDS: Atorvastatin Calcium 20 MG TAB PO SCH (20:45)
[2018-11-24] MEDS: Piperacillin/Tazobactam 4.5 GM in Sodium Chloride 0.9% 100 ML IVPB SCH ×5 (00:27→23:27)
[2018-11-24] MEDS: metroNIDAZOLE 500 MG in Premix Bag 1 BAG IVPB SCH ×2 (05:21→14:50)
[2018-11-24 05:44] LABS: Anion Gap 11 mmol/L (10-20); BUN (Urea Nitrogen) 16 mg/dL (8.4-25.7); Calc. Creatinine Clearance 117 mL/min (70-130); Calcium 8.2 mg/dL (7.8-10.44); Carbon Dioxide 27 mmol/L (23-31); Chloride 103 mmol/L (98-107); Estimated GFR-MDRD Greater than 90; Glucose 92 mg/dL (83-110); Sodium 137 mmol/L (136-145)
[2018-11-24 05:47] LABS: #Lymphocytes 0.8 thou/uL (1.20-3.40); #Monocytes 0.8 thou/uL (0.11-0.59); #Neutrophils 6.8 thou/uL (1.40-6.50); %Basophils 0.2 % (0.0-1.0); %Eosinophils 0.5 % (0.0-10.0); %Lymphocytes 9.6 % (21.0-51.0); %Monocytes 9.1 % (0.0-10.0); %Neutrophils 80.7 % (42.0-75.0); Hemoglobin 10.1 g/dL (14.0-18.0); Mean Corpuscular HGB CONC 32.6 g/dL (32.0-36.0); Mean Corpuscular Hemoglobin 32.9 pg (27.0-31.0); Mean Platelet Volume 9.4 fL (7.4-10.4); Platelet Count 87 thou/uL (130-400); Red Blood Cell (RBC) Count 3.07 mill/uL (4.70-6.10); White Blood Cell (WBC) Count 8.5 thou/uL (4.8-10.8)
[2018-11-24] MEDS: Fish Oil 1,000 MG CAP PO SCH (09:00)
[2018-11-24] MEDS: Carvedilol 3.125 MG TAB PO SCH ×2 (09:00→20:12)
[2018-11-24] MEDS: Cyanocobalamin (Vitamin B-12) 1,000 MCG TAB PO SCH (09:00)
[2018-11-24] MEDS: predniSONE 20 MG TAB PO SCH (09:01)
[2018-11-24] MEDS: Saccharomyces boulardii 250 MG CAP PO SCH (09:01)
[2018-11-24] MEDS: Aspirin 81 mg Enteric Coated Tablet PO SCH (09:01)
[2018-11-24] MEDS: HYDROcodone/Acetaminophen 5/325 mg Tablet PO PRN ×2 (10:09→20:11)
[2018-11-24] MEDS ORDERED: Ketorolac Tromethamine 30 MG/ML VIAL IVP PRN (10:57)
--- NOTE | 2018-11-24 10:57 | PDOC.PN ---
- Subjective Encounter Start Date: 11/24/18 Encounter Start Time: 08:10 pt has recently worsened severe back pain and unable to ambulate due to that, Patient seen and examined. he has bloating. No overnight events - Objective Resuscitation Status - Order Detail: 11/21/18 22:56 Resuscitation Status Routine Co-Sign Provider: Resuscitation Status: FULL: Full Resuscitation Discussed with: patient MAR Reviewed: Yes Vital Signs & Weight: Vital Signs (12 hours) Temp Pulse Resp BP Pulse Ox 11/24/18 07:52 98.3 F 64 12 126/72 96 11/24/18 03:36 98.7 F 64 16 118/72 94 L 11/24/18 00:14 97.9 F 67 16 127/66 97 Weight Admit Weight 199 lb Weight 199 lb I&O: 11/23/18 11/24/18 11/25/18 06:59 06:59 06:59 Intake Total 3795 3330 Output Total 3075 Balance 3795 255 Result Diagrams: 11/24/18 05:10 11/24/18 05:10 Phys Exam - Physical Examination Constitutional: NAD HEENT: PERRLA, moist MMs, sclera anicteric Neck: no JVD, supple Respiratory: no wheezing, no rales, no rhonchi Cardiovascular: RRR, no significant murmur, no rub Gastrointestinal: soft, non-tender, no distention, positive bowel sounds Musculoskeletal: no edema, pulses present Neurological: non-focal, normal sensation, moves all 4 limbs Lymphatic: no nodes Psychiatric: normal affect Skin: no rash, normal turgor Dx/Plan (1) Acute diverticulitis Code(s): K57.92 - DVTRCLI OF INTEST, PART UNSP, W/O PERF OR ABSCESS W/O BLEED Status: Acute Comment: noncomplicated, without abscess or bleeding (2) Elevated LFTs Code(s): R94.5 - ABNORMAL RESULTS OF LIVER FUNCTION STUDIES Status: Acute (3) Foot ulcer Code(s): L97.509 - NON-PRESSURE CHRONIC ULCER OTH PRT UNSP FOOT W UNSP SEVERITY Status: Acute (4) Hyperbilirubinemia Code(s): E80.6 - OTHER DISORDERS OF BILIRUBIN METABOLISM Status: Acute (5) Lactic acidosis Code(s): E87.2 - ACIDOSIS Status: Acute (6) Sepsis secondary to UTI Code(s): A41.9 - SEPSIS, UNSPECIFIED ORGANISM; N39.0 - URINARY TRACT INFECTION, SITE NOT SPECIFIED Status: Acute (7) Sepsis with acute organ dysfunction Code(s): A41.9 - SEPSIS, UNSPECIFIED ORGANISM; R65.20 - SEVERE SEPSIS WITHOUT SEPTIC SHOCK Status: Acute (8) Thrombocytopenia Code(s): D69.6 - THROMBOCYTOPENIA, UNSPECIFIED Status: Acute (9) BPH (benign prostatic hyperplasia) Code(s): N40.0 - BENIGN PROSTATIC HYPERPLASIA WITHOUT LOWER URINRY TRACT SYMP Status: Chronic (10) CAD (coronary artery disease) Code(s): I25.10 - ATHSCL HEART DISEASE OF [place] CORONARY ARTERY W/O ANG PCTRS Status: Chronic Qualifiers: [place] vs. transplanted heart: [place] heart Associated angina: without angina (11) COPD (chronic obstructive pulmonary disease) Status: Chronic (12) Macrocytic anemia Code(s): D53.9 - NUTRITIONAL ANEMIA, UNSPECIFIED Status: Chronic (13) Myasthenia gravis in remission Code(s): G70.00 - MYASTHENIA GRAVIS WITHOUT (ACUTE) EXACERBATION Status: Chronic (14) Acute back pain Code(s): M54.9 - DORSALGIA, UNSPECIFIED Status: Acute - Plan cont current plan of care, plan discussed w/ family, continue antibiotics, PT/OT , social service manager * today lab testing done and has improvement * concerned about back pain, given high crp and positive blood culture, will get MRI LS spine to rule out discites * medication reviewed as below * symptomatic treatment * updated burgess to daughter * will need rehab on discharge * continue current antibiotics * pain control. Review of Systems - Review of Systems ENT: negative: Ear Pain, Ear Discharge, Nose Pain, Nose Discharge, Nose Congestion, Mouth Pain, Mouth Swelling, Throat Pain, Throat Swelling, Other Respiratory: negative: Cough, Dry, Shortness of Breath, Hemoptysis, SOB with Excertion, Pleuritic Pain, Sputum, Wheezing Cardiovascular: negative: chest pain, palpitations, orthopnea, paroxysmal nocturnal dyspnea, edema, light headedness, other Gastrointestinal: negative: Nausea, Vomiting, Abdominal Pain, Diarrhea, Constipation, Melena, Hematochezia, Other Genitourinary: negative: Dysuria, Frequency, Incontinence, Hematuria, Retention , Other Musculoskeletal: Back Pain. negative: Neck Pain, Shoulder Pain, Arm Pain, Hand Pain, Leg Pain, Foot Pain, Other - Medications/Allergies Allergies/Adverse Reactions: Allergies Allergy/AdvReac Type Severity Reaction Status Date / Time No Known Allergies Allergy Verified 08/24/17 15:53 Medications: Current Medications Hydrocodone Bitart/Acetaminophen ([place] 5/325) 1 tab PO Q4H PRN PRN Reason: Moderate Pain (4-6) Last Admin: 11/24/18 10:09 Dose: 1 tab Albuterol/Ipratropium (Duoneb) 3 ml NEB [id number] PRN PRN Reason: SOB &/or Wheezing Artificial Tears (Tears Naturale) 2 drop EA EYE PRN PRN PRN Reason: Dry Eyes Aspirin (Ecotrin) 81 mg PO DAILY [facility] Last Admin: 11/24/18 09:01 Dose: 81 mg Atorvastatin Calcium (Lipitor) 20 mg PO HS [facility] Last Admin: 11/23/18 20:45 Dose: 20 mg Bisacodyl (Dulcolax) 10 mg [place] DAILYPRN PRN PRN Reason: Constipation Calcium Carbonate (Tums) 1,000 mg PO Q4H PRN PRN Reason: Heartburn or Indigestion Carvedilol (Coreg) 3.125 mg PO BID [facility] Last Admin: 11/24/18 09:00 Dose: 3.125 mg Cholecalciferol (Vitamin D3) 1,000 units PO DAILY [facility] Last Admin: 11/24/18 09:01 Dose: 1,000 units Cyanocobalamin (Vitamin B-12) 2,500 mcg PO DAILY [facility] Last Admin: 11/24/18 09:00 Dose: 2,500 mcg Fish Oil (Fish Oil) 1,000 mg PO DAILY [facility] Last Admin: 11/24/18 09:00 Dose: 1,000 mg Guaifenesin (Robitussin Sf) 200 mg PO Q4H PRN PRN Reason: Cough Hydralazine HCl (Apresoline) 10 mg SLOW IVP Q4H PRN PRN Reason: SBP > 180 and HR < 70 Piperacillin Sod/Tazobactam (Sod 4.5 gm/ Sodium Chloride) 100 mls @ 200 mls/hr IVPB Q6HR [facility] Last Admin: 11/24/18 05:21 Dose: 100 mls Metronidazole 500 mg/ Device 100 mls @ 100 mls/hr IVPB Q8HR [facility] Last Admin: 11/24/18 05:21 Dose: 100 mls Loperamide HCl (Imodium) 2 mg PO PRN PRN PRN Reason: Diarrhea/Loose Stools Loratadine (Claritin) 10 mg PO DAILYPRN PRN PRN Reason: Sinus Symptoms Ondansetron HCl (Zofran Odt) 4 mg PO Q6H PRN PRN Reason: Nausea/Vomiting Ondansetron HCl (Zofran) 4 mg IVP Q6H PRN PRN Reason: Nausea/Vomiting Pantoprazole Sodium (Protonix) 40 mg PO BID [facility] Last Admin: 11/24/18 09:01 Dose: 40 mg Prednisone (Prednisone) 60 mg PO [facility]AM[facility] Last Admin: 11/24/18 09:01 Dose: 60 mg Saccharomyces Boulardii (Florastor) 250 mg PO DAILY [facility] Last Admin: 11/24/18 09:01 Dose: 250 mg Senna/Docusate Sodium (Senokot S) 2 tab PO BID PRN PRN Reason: Constipation Sodium Chloride ([place] Nasal [place] 0.65%) 0 ml EA NARE QIDPRN PRN PRN Reason: Nasal Congestion Temazepam (Restoril) 15 mg PO HSPRN PRN PRN Reason: Insomnia Throat Lozenges (Cepastat Lozenges) 1 paige PO Q2H PRN PRN Reason: Sore Throat
[2018-11-24] MEDS ORDERED: Morphine 4 MG/ML VIAL SLOW IVP PRN (11:15)
[2018-11-24] MEDS: Vancomycin HCl 1.5 GM in Sodium Chloride 0.9% 250 ML 300 ML IVPB SCH (18:23)
--- NOTE | 2018-11-24 19:15 | CON ---
DATE OF CONSULTATION: 11/24/2018 REASON FOR CONSULTATION: Myasthenia gravis with back pain and bacteremia. HISTORY OF PRESENT ILLNESS: A 72-year-old patient with a history of myasthenia gravis controlled with prednisone, COPD, and previous aortic valve replacement elsewhere, who lives in [facility] in [place] and has family members here in town and he came to visit. Recently, he was in [place] visiting family members and underwent cholecystectomy, he remained about five days in the local hospital and had developed sepsis. He recovered and then over the past few days has developed a progressively worsening lower back pain, which hindered movements. The pain was very intense, so he grades it 9/10, did not radiate. He had some extremity swelling, which has been happening for the past many weeks to months with some findings in the lower extremities consistent with stasis dermatitis. Subsequently, he developed some urinary symptoms with mostly change in the color of urine and mild dysuria. Initial findings included a BP 105/67, temperature 98.3, and O2 saturation 95%. His abdomen was distended with some tenderness in the lower segments. The heart and lung exams were normal. He is able to move extremities well. Currently, Mr. Chacon still with marked pain in the lower back area. He is oriented. Denies headaches. No visual symptoms, sore throat, odynophagia, or dysphagia. No cough. No chest pain or dyspnea. He seems to be able to void without dysuria or other difficulty. No joint symptoms. Has developed heel ulcer on the right side, probably related to the stay in [facility] hospital. PAST MEDICAL HISTORY: Myasthenia gravis on prednisone, prior episodes of shingles, coronary artery disease, aortic stenosis with valve replacement 15 months ago elsewhere, coronary angioplasty with stent, bilateral knee repair. Apparently, this was rupture of the muscles that attached to the patella from running. The patient used to run marathons. Also has a cholecystectomy history recently completed in [place]. FAMILY HISTORY: Noncontributory. SOCIAL HISTORY: Lives in [place], [place]. Never smoked. Drinks wine regularly. I believe he is retired at this time. CURRENT MEDICATIONS: 1. DuoNeb. 2. Ecotrin. 3. Lipitor. 4. Dulcolax. 5. Tums. 6. Coreg. 7. Flexeril. 8. Fish oil. 9. Apresoline. 10. Toradol. 11. Flagyl. 12. Zosyn. PHYSICAL EXAMINATION: VITAL SIGNS: T-max 98.4 to 99.5, BP 130/70, pulse 80, respirations 18, and O2 saturation 95. SKIN: The patient has about stage 2 ulcer in the right heel region. Another one in the left side measured about 2 cm with dark scab, but unstageable. The patient has a peripheral IV access and is voiding spontaneously. I's and O's have been quite positive for the past 24 hours. No lymphadenopathy. HEENT: Ocular movements conjugate. Sclerae white. Pupils are equal. Conjunctivae normal. Nasal passages patent. Oral cavity with quite a few teeth in place with dry oral mucosa. NECK: Supple. No jugular vein distention or carotid bruits. LUNGS: Symmetric clear breath sounds. HEART: S1 and S2. Regular rate without murmurs. No S3. Marked tenderness in the lower back area. ABDOMEN: Somewhat distended. No ascites. : Question of bladder distention. No genital inflammatory changes. No swelling. EXTREMITIES: No joint inflammatory activity. Pulses 1+ in dorsalis pedis. Skin signs in lower extremities suggestive of stasis dermatitis. Plantar response are flexor. NEUROLOGIC: Strength in upper and lower extremities preserved. Cognitive function is intact. LABORATORY DATA: On admission; white cell count 11.4 and now is 8.5, hemoglobin 12, MCV 101, platelets 141 and now 87, and neutrophil percent is 60 on arrival with 28% bands and now 68 and 23% bands. INR 1.2. Chemistry with sodium 135, creatinine 0.8, bilirubin is 1.8 on arrival, and AST 42 and now they have normalized. CRP 28. Albumin 2.6. Urinalysis with greater than 50 wbc's. All serologies have been nonreactive. Microbiology with 2 sets of blood cultures with gram-positive rods and the other one with E. faecalis and coagulase negative Staph. Urine culture with E. coli with ESBL phenotype. Abdominal ultrasound with cholecystectomy and right renal cyst. The abdomen CT showed some stranding changes adjacent to some diverticula in the left colon, but they read as acute diverticulitis, but clinically he does not seem to have signs of such diagnosis at least at this point in time. ASSESSMENT: 1. Myasthenia gravis, on prednisone. 2. Sepsis event treated in [place] with cholecystectomy two months ago. 3. Acute onset of low back pain with bacteremia in the setting of an aortic valve replacement. 4. Abnormal urinalysis with a different organism isolated. 5. Subtle abnormality on CT abd/pelvis with question of diverticulitis DISCUSSION: Differential diagnosis includes aortic valve prosthetic endocarditis, possible lumbosacral spine diskitis and osteomyelitis as the most likely diagnosis. Diverticulitis possible but does not explain the intensity of the back pain. Also the mild findings would usually not be associated with bacteremia. The patient may have urinary retention. The urinary tract findings are probably innocent bystanders and do not have immediate relationship with the clinical symptoms on admission. His myasthenia seems to be well controlled at this point in time and the CT scan findings will have to be followed. We will continue monitoring his clinical exam. We will wait for the final identification of the organism. He will have an echocardiogram done, if not done yet, may need a transesophageal echocardiogram. We will wait on the results of the MRI of lumbosacral spine. Probably, he will need long-term antimicrobial therapy administered. We will add vancomycin to Zosyn and discontinue metronidazole. If the echo/mri do not revel any abnormalities, will have to refocus on the abd/pelvis findings. Job ID: [id number] MTDD
[2018-11-24] MEDS: Atorvastatin Calcium 20 MG TAB PO SCH (20:12)
[2018-11-24] MEDS ORDERED: Vancomycin HCl 1.25 GM in Sodium Chloride 0.9% 250 ML 300 ML IVPB SCH (21:00)
[2018-11-25] MEDS: Piperacillin/Tazobactam 4.5 GM in Sodium Chloride 0.9% 100 ML IVPB SCH ×3 (05:25→18:29)
[2018-11-25] MEDS: Vancomycin HCl 1.5 GM in Sodium Chloride 0.9% 250 ML 300 ML IVPB SCH ×2 (05:29→18:29)
[2018-11-25] MEDS: HYDROcodone/Acetaminophen 5/325 mg Tablet PO PRN ×2 (08:09→20:28)
[2018-11-25] MEDS: Fish Oil 1,000 MG CAP PO SCH (09:38)
[2018-11-25] MEDS: Carvedilol 3.125 MG TAB PO SCH ×2 (09:38→20:28)
[2018-11-25] MEDS: Cyanocobalamin (Vitamin B-12) 1,000 MCG TAB PO SCH (09:38)
[2018-11-25] MEDS: predniSONE 20 MG TAB PO SCH (09:38)
[2018-11-25] MEDS: Aspirin 81 mg Enteric Coated Tablet PO SCH (09:38)
[2018-11-25] MEDS: Saccharomyces boulardii 250 MG CAP PO SCH (09:39)
[2018-11-25] MEDS: Cyclobenzaprine 10 MG TAB PO PRN ×2 (09:42→20:28)
--- NOTE | 2018-11-25 10:22 | MRI ---
MRI LUMBAR SPINE WITH AND WITHOUT CONTRAST: Multiplanar, multisequence imaging of lumbar spine obtained. Postcontrast images were obtained with IV MultiHance administration. INDICATION: Back pain. Sepsis. Assess for diskitis. Correlation is made to the lumbar spine seen on CT abdomen and pelvis 11/21/2018. FINDINGS: Lumbar vertebrae maintain height and alignment. Disk spaces are preserved. No abnormal disk space s ignal identified. No evidence of diskitis. There is abnormal signal seen with evidence of edema and enhancement along the superior end plate to the left of midline at L4. There is slight end plate compression at this level and the findings are suspicious for acute/subacute fracture with mild depression of the superior end plate of L4 on the le ft. This may explain patient's back pain. There is mild enhancement and edema along the inferior end plate of L3 which may be degenerative or c ould represent mild edema or be related to injury of this inferior end plate. No significant depress ion or loss of height at L3. No other abnormal enhancement. Review of the disk spaces is given below: At L1-2, a broad-based disk bulge flattens the anterior thecal sac. No significant central canal or foraminal stenosis. At L2-3, diffuse disk bulge abuts and mildly flattens the anterior thecal sac. Mild facet arthrosis. No significant central canal or foraminal stenosis. At L3-4, broad-based disk bulge flattens the thecal sac. Facet and ligamentous hypertrophy is combin ed with posterior epidural fat resulting in mild to moderate central canal stenosis. Bilateral day inal narrowing secondary to facet hypertrophy and diffuse disk bulge. At L4-5, mild broad-based disk bulge flattens the anterior thecal sac. Mild facet and ligamentous hy pertrophy result in mild central canal stenosis. At L5-S1, mild diffuse disk bulge. Facet hypertrophy. No significant central canal stenosis. Bilat eral foraminal encroachment due to disk-osteophyte and facet hypertrophy. These changes are more pro nounced on the left. IMPRESSION: 1. No evidence of diskitis or osteomyelitis. There is edema and slight compression involving the kauffman perior end plate of L4 to the left of midline concerning for acute or subacute compression fracture. Mild edema involving the inferior end plate of L3 at this level as well. 2. Posterior disk bulges at multiple levels as described above. POS: OFF
--- NOTE | 2018-11-25 11:28 | PDOC.PN ---
- Subjective Encounter Start Date: 11/25/18 Encounter Start Time: 08:20 Patient seen and examined. No new complaints. No overnight events - Objective Resuscitation Status - Order Detail: 11/21/18 22:56 Resuscitation Status Routine Co-Sign Provider: Resuscitation Status: FULL: Full Resuscitation Discussed with: patient MAR Reviewed: Yes Vital Signs & Weight: Vital Signs (12 hours) Temp Pulse Resp BP Pulse Ox 11/25/18 11:19 98.3 F 72 18 141/72 H 97 11/25/18 07:48 98.4 F 66 18 146/75 H 98 11/25/18 04:00 98.2 F 62 18 131/68 98 11/25/18 00:00 98.3 F 58 L 16 128/72 98 Weight Admit Weight 199 lb Weight 199 lb I&O: 11/24/18 11/25/18 11/26/18 06:59 06:59 06:59 Intake Total 3330 1200 Output Total 3075 1450 Balance 255 -250 Result Diagrams: 11/24/18 05:10 11/24/18 05:10 Radiology Reviewed by me: Yes (MRI LS spine noted) Phys Exam - Physical Examination Constitutional: NAD HEENT: PERRLA, moist MMs, sclera anicteric Neck: no JVD, supple Respiratory: no wheezing, no rales, no rhonchi Cardiovascular: RRR, no significant murmur, no rub Gastrointestinal: soft, non-tender, no distention, positive bowel sounds Musculoskeletal: no edema, pulses present Neurological: non-focal, normal sensation Lymphatic: no nodes Psychiatric: normal affect, A&O x 3 Skin: no rash, normal turgor Dx/Plan (1) Acute diverticulitis Code(s): K57.92 - DVTRCLI OF INTEST, PART UNSP, W/O PERF OR ABSCESS W/O BLEED Status: Acute Comment: noncomplicated, without abscess or bleeding (2) Elevated LFTs Code(s): R94.5 - ABNORMAL RESULTS OF LIVER FUNCTION STUDIES Status: Acute (3) Foot ulcer Code(s): L97.509 - NON-PRESSURE CHRONIC ULCER OTH PRT UNSP FOOT W UNSP SEVERITY Status: Acute (4) Hyperbilirubinemia Code(s): E80.6 - OTHER DISORDERS OF BILIRUBIN METABOLISM Status: Acute (5) Lactic acidosis Code(s): E87.2 - ACIDOSIS Status: Acute (6) Sepsis secondary to UTI Code(s): A41.9 - SEPSIS, UNSPECIFIED ORGANISM; N39.0 - URINARY TRACT INFECTION, SITE NOT SPECIFIED Status: Acute (7) Sepsis with acute organ dysfunction Code(s): A41.9 - SEPSIS, UNSPECIFIED ORGANISM; R65.20 - SEVERE SEPSIS WITHOUT SEPTIC SHOCK Status: Acute (8) Thrombocytopenia Code(s): D69.6 - THROMBOCYTOPENIA, UNSPECIFIED Status: Acute (9) BPH (benign prostatic hyperplasia) Code(s): N40.0 - BENIGN PROSTATIC HYPERPLASIA WITHOUT LOWER URINRY TRACT SYMP Status: Chronic (10) CAD (coronary artery disease) Code(s): I25.10 - ATHSCL HEART DISEASE OF [place] CORONARY ARTERY W/O ANG PCTRS Status: Chronic Qualifiers: [place] vs. transplanted heart: [place] heart Associated angina: without angina (11) COPD (chronic obstructive pulmonary disease) Status: Chronic (12) Macrocytic anemia Code(s): D53.9 - NUTRITIONAL ANEMIA, UNSPECIFIED Status: Chronic (13) Myasthenia gravis in remission Code(s): G70.00 - MYASTHENIA GRAVIS WITHOUT (ACUTE) EXACERBATION Status: Chronic (14) Acute back pain Code(s): M54.9 - DORSALGIA, UNSPECIFIED Status: Acute - Plan cont current plan of care, plan discussed w/ family, continue antibiotics, PT/OT , case management social worker * MRI LS spine negative for osteomyelitis and discites * medication reviewed as below * symptomatic treatment * continue current antibiotics * will get echo * ID recommendation noted * pt is improving. Review of Systems - Review of Systems ENT: negative: Ear Pain, Ear Discharge, Nose Pain, Nose Discharge, Nose Congestion, Mouth Pain, Mouth Swelling, Throat Pain, Throat Swelling, Other Respiratory: negative: Cough, Dry, Shortness of Breath, Hemoptysis, SOB with Excertion, Pleuritic Pain, Sputum, Wheezing Cardiovascular: negative: chest pain, palpitations, orthopnea, paroxysmal nocturnal dyspnea, edema, light headedness, other Gastrointestinal: negative: Nausea, Vomiting, Abdominal Pain, Diarrhea, Constipation, Melena, Hematochezia, Other Genitourinary: negative: Dysuria, Frequency, Incontinence, Hematuria, Retention , Other Musculoskeletal: Back Pain. negative: Neck Pain, Shoulder Pain, Arm Pain, Hand Pain, Leg Pain, Foot Pain, Other Skin: negative: Rash, Lesions, Calvin, Bruising, Other - Medications/Allergies Allergies/Adverse Reactions: Allergies Allergy/AdvReac Type Severity Reaction Status Date / Time No Known Allergies Allergy Verified 08/24/17 15:53 Medications: Current Medications Hydrocodone Bitart/Acetaminophen ([place] 5/325) 1 tab PO Q4H PRN PRN Reason: Moderate Pain (4-6) Last Admin: 11/25/18 08:09 Dose: 1 tab Albuterol/Ipratropium (Duoneb) 3 ml NEB [id number] PRN PRN Reason: SOB &/or Wheezing Artificial Tears (Tears Naturale) 2 drop EA EYE PRN PRN PRN Reason: Dry Eyes Aspirin (Ecotrin) 81 mg PO DAILY [facility] Last Admin: 11/25/18 09:38 Dose: 81 mg Atorvastatin Calcium (Lipitor) 20 mg PO HS [facility] Last Admin: 11/24/18 20:12 Dose: 20 mg Bisacodyl (Dulcolax) 10 mg [place] DAILYPRN PRN PRN Reason: Constipation Calcium Carbonate (Tums) 1,000 mg PO Q4H PRN PRN Reason: Heartburn or Indigestion Carvedilol (Coreg) 3.125 mg PO BID [facility] Last Admin: 11/25/18 09:38 Dose: 3.125 mg Cholecalciferol (Vitamin D3) 1,000 units PO DAILY [facility] Last Admin: 11/25/18 09:37 Dose: 1,000 units Cyanocobalamin (Vitamin B-12) 2,500 mcg PO DAILY [facility] Last Admin: 11/25/18 09:38 Dose: 2,500 mcg Cyclobenzaprine HCl (Flexeril) 10 mg PO TIDPRN PRN PRN Reason: Muscle Spasm Last Admin: 11/25/18 09:42 Dose: 10 mg Fish Oil (Fish Oil) 1,000 mg PO DAILY [facility] Last Admin: 11/25/18 09:38 Dose: 1,000 mg Guaifenesin (Robitussin Sf) 200 mg PO Q4H PRN PRN Reason: Cough Hydralazine HCl (Apresoline) 10 mg SLOW IVP Q4H PRN PRN Reason: SBP > 180 and HR < 70 Piperacillin Sod/Tazobactam (Sod 4.5 gm/ Sodium Chloride) 100 mls @ 200 mls/hr IVPB Q6HR [facility] Last Admin: 11/25/18 05:25 Dose: 100 mls Vancomycin HCl 1.5 gm/ Sodium (Chloride) 300 mls @ 200 mls/hr IVPB 0600,1800 [facility] Last Admin: 11/25/18 05:29 Dose: 300 mls Ketorolac Tromethamine (Toradol) 15 mg IVP Q6H PRN PRN Reason: Mild Pain (1-3) Stop: 11/29/18 10:58 Loperamide HCl (Imodium) 2 mg PO PRN PRN PRN Reason: Diarrhea/Loose Stools Loratadine (Claritin) 10 mg PO DAILYPRN PRN PRN Reason: Sinus Symptoms Miscellaneous Medication (Pharmacy To Dose) 1 each IVPB PRN PRN PRN Reason: . Morphine Sulfate (Morphine) 2 mg SLOW IVP Q4H PRN PRN Reason: Severe Pain (7-10) Ondansetron HCl (Zofran Odt) 4 mg PO Q6H PRN PRN Reason: Nausea/Vomiting Ondansetron HCl (Zofran) 4 mg IVP Q6H PRN PRN Reason: Nausea/Vomiting Pantoprazole Sodium (Protonix) 40 mg PO BID [facility] Last Admin: 11/25/18 09:38 Dose: 40 mg Prednisone (Prednisone) 60 mg PO QAM[facility] Last Admin: 11/25/18 09:38 Dose: 60 mg Saccharomyces Boulardii (Florastor) 250 mg PO DAILY [facility] Last Admin: 11/25/18 09:39 Dose: 250 mg Senna/Docusate Sodium (Senokot S) 2 tab PO BID PRN PRN Reason: Constipation Sodium Chloride ([place] 0.65%) 0 ml EA NARE QIDPRN PRN PRN Reason: Nasal Congestion Temazepam (Restoril) 15 mg PO HSPRN PRN PRN Reason: Insomnia Throat Lozenges (Cepastat Lozenges) 1 paige PO Q2H PRN PRN Reason: Sore Throat
[2018-11-25] MEDS: Atorvastatin Calcium 20 MG TAB PO SCH (20:27)
[2018-11-26] MEDS: Piperacillin/Tazobactam 4.5 GM in Sodium Chloride 0.9% 100 ML IVPB SCH ×3 (00:23→14:52)
[2018-11-26 05:52] LABS: #Lymphocytes 0.8 thou/uL (1.20-3.40); #Monocytes 0.7 thou/uL (0.11-0.59); #Neutrophils 4.3 thou/uL (1.40-6.50); %Basophils 0.6 % (0.0-1.0); %Eosinophils 0.6 % (0.0-10.0); %Lymphocytes 13.9 % (21.0-51.0); %Monocytes 12.3 % (0.0-10.0); %Neutrophils 72.6 % (42.0-75.0); Hemoglobin 11.2 g/dL (14.0-18.0); Mean Corpuscular HGB CONC 31.7 g/dL (32.0-36.0); Mean Corpuscular Hemoglobin 32.7 pg (27.0-31.0); Mean Platelet Volume 9.8 fL (7.4-10.4); Platelet Count 142 thou/uL (130-400); RBC Distribution Width 14.4 % (11.5-14.5); Red Blood Cell (RBC) Count 3.44 mill/uL (4.70-6.10); White Blood Cell (WBC) Count 5.9 thou/uL (4.8-10.8)
[2018-11-26 06:15] LABS: Vancomycin, Trough 15.1 ug/mL
[2018-11-26 06:17] LABS: Anion Gap 11 mmol/L (10-20); BUN (Urea Nitrogen) 16 mg/dL (8.4-25.7); Calc. Creatinine Clearance 131 mL/min (70-130); Calcium 8.6 mg/dL (7.8-10.44); Carbon Dioxide 27 mmol/L (23-31); Chloride 101 mmol/L (98-107); Estimated GFR-MDRD Greater than 90; Glucose 126 mg/dL (83-110); Potassium 4.1 mmol/L (3.5-5.1); Sodium 135 mmol/L (136-145)
[2018-11-26] MEDS: Vancomycin HCl 1.5 GM in Sodium Chloride 0.9% 250 ML 300 ML IVPB SCH ×2 (06:29→18:13)
[2018-11-26] MEDS: Saccharomyces boulardii 250 MG CAP PO SCH (08:19)
[2018-11-26] MEDS: Cyanocobalamin (Vitamin B-12) 1,000 MCG TAB PO SCH (08:19)
[2018-11-26] MEDS: predniSONE 20 MG TAB PO SCH (08:20)
[2018-11-26] MEDS: Aspirin 81 mg Enteric Coated Tablet PO SCH (08:21)
[2018-11-26] MEDS: Carvedilol 3.125 MG TAB PO SCH (08:21)
[2018-11-26] MEDS: Fish Oil 1,000 MG CAP PO SCH (08:21)
[2018-11-26] MEDS: HYDROcodone/Acetaminophen 5/325 mg Tablet PO PRN ×2 (08:24→14:50)
--- NOTE | 2018-11-26 10:20 | PDOC.PN ---
- Subjective Encounter Start Date: 11/26/18 Encounter Start Time: 08:10 Patient seen and examined. No new complaints. No overnight events - Objective Resuscitation Status - Order Detail: 11/21/18 22:56 Resuscitation Status Routine Co-Sign Provider: Resuscitation Status: FULL: Full Resuscitation Discussed with: patient TEODORO Reviewed: Yes Vital Signs & Weight: Vital Signs (12 hours) Temp Pulse Resp BP Pulse Ox 11/26/18 08:00 98.0 F 55 L 18 157/77 H 96 11/26/18 03:35 97.6 F 57 L 16 158/81 H 99 11/25/18 23:33 97.8 F 67 16 126/73 97 Weight Admit Weight 199 lb Weight 199 lb I&O: 11/25/18 11/26/18 11/27/18 06:59 06:59 06:59 Intake Total 3340 Output Total 2550 Balance 790 Result Diagrams: 11/26/18 05:40 11/26/18 05:40 Phys Exam - Physical Examination Constitutional: NAD HEENT: PERRLA, moist MMs, sclera anicteric Neck: no JVD, supple Respiratory: no wheezing, no rales, no rhonchi Cardiovascular: RRR, no significant murmur, no rub Gastrointestinal: soft, non-tender, no distention, positive bowel sounds obesity+ Musculoskeletal: no edema, pulses present Neurological: non-focal, normal sensation Lymphatic: no nodes Psychiatric: normal affect, A&O x 3 Skin: no rash, normal turgor Dx/Plan (1) Acute diverticulitis Code(s): K57.92 - DVTRCLI OF INTEST, PART UNSP, W/O PERF OR ABSCESS W/O BLEED Status: Acute Comment: noncomplicated, without abscess or bleeding (2) Elevated LFTs Code(s): R94.5 - ABNORMAL RESULTS OF LIVER FUNCTION STUDIES Status: Acute (3) Foot ulcer Code(s): L97.509 - NON-PRESSURE CHRONIC ULCER OTH PRT UNSP FOOT W UNSP SEVERITY Status: Acute (4) Hyperbilirubinemia Code(s): E80.6 - OTHER DISORDERS OF BILIRUBIN METABOLISM Status: Acute (5) Lactic acidosis Code(s): E87.2 - ACIDOSIS Status: Acute (6) Sepsis secondary to UTI Code(s): A41.9 - SEPSIS, UNSPECIFIED ORGANISM; N39.0 - URINARY TRACT INFECTION, SITE NOT SPECIFIED Status: Acute (7) Sepsis with acute organ dysfunction Code(s): A41.9 - SEPSIS, UNSPECIFIED ORGANISM; R65.20 - SEVERE SEPSIS WITHOUT SEPTIC SHOCK Status: Acute (8) Thrombocytopenia Code(s): D69.6 - THROMBOCYTOPENIA, UNSPECIFIED Status: Acute (9) BPH (benign prostatic hyperplasia) Code(s): N40.0 - BENIGN PROSTATIC HYPERPLASIA WITHOUT LOWER URINRY TRACT SYMP Status: Chronic (10) CAD (coronary artery disease) Code(s): I25.10 - ATHSCL HEART DISEASE OF [place] CORONARY ARTERY W/O ANG PCTRS Status: Chronic Qualifiers: [place] vs. transplanted heart: [place] heart Associated angina: without angina (11) COPD (chronic obstructive pulmonary disease) Status: Chronic (12) Macrocytic anemia Code(s): D53.9 - NUTRITIONAL ANEMIA, UNSPECIFIED Status: Chronic (13) Myasthenia gravis in remission Code(s): G70.00 - MYASTHENIA GRAVIS WITHOUT (ACUTE) EXACERBATION Status: Chronic (14) Acute back pain Code(s): M54.9 - DORSALGIA, UNSPECIFIED Status: Acute - Plan cont current plan of care, continue antibiotics, PT/OT, social psychologist * continue vancomycin and zosyn * today will ask to ID about any further recommendation and final antibiotic plan * medication reviewed as below * symptomatic treatment. Review of Systems - Review of Systems ENT: negative: Ear Pain, Ear Discharge, Nose Pain, Nose Discharge, Nose Congestion, Mouth Pain, Mouth Swelling, Throat Pain, Throat Swelling, Other Respiratory: negative: Cough, Dry, Shortness of Breath, Hemoptysis, SOB with Excertion, Pleuritic Pain, Sputum, Wheezing Cardiovascular: negative: chest pain, palpitations, orthopnea, paroxysmal nocturnal dyspnea, edema, light headedness, other Gastrointestinal: negative: Nausea, Vomiting, Abdominal Pain, Diarrhea, Constipation, Melena, Hematochezia, Other Genitourinary: negative: Dysuria, Frequency, Incontinence, Hematuria, Retention , Other Musculoskeletal: Back Pain. negative: Neck Pain, Shoulder Pain, Arm Pain, Hand Pain, Leg Pain, Foot Pain, Other Skin: negative: Rash, Lesions, Calvin, Bruising, Other - Medications/Allergies Allergies/Adverse Reactions: Allergies Allergy/AdvReac Type Severity Reaction Status Date / Time No Known Allergies Allergy Verified 04/03/18 15:53 Medications: Current Medications Hydrocodone Bitart/Acetaminophen ([place] 5/325) 1 tab PO Q4H PRN PRN Reason: Moderate Pain (4-6) Last Admin: 11/26/18 08:24 Dose: 1 tab Albuterol/Ipratropium (Duoneb) 3 ml NEB [id number] PRN PRN Reason: SOB &/or Wheezing Artificial Tears (Tears Naturale) 2 drop EA EYE PRN PRN PRN Reason: Dry Eyes Aspirin (Ecotrin) 81 mg PO DAILY [facility] Last Admin: 11/26/18 08:21 Dose: 81 mg Atorvastatin Calcium (Lipitor) 20 mg PO HS [facility] Last Admin: 11/25/18 20:27 Dose: 20 mg Bisacodyl (Dulcolax) 10 mg [place] DAILYPRN PRN PRN Reason: Constipation Calcium Carbonate (Tums) 1,000 mg PO Q4H PRN PRN Reason: Heartburn or Indigestion Carvedilol (Coreg) 3.125 mg PO BID [facility] Last Admin: 11/26/18 08:21 Dose: 3.125 mg Cholecalciferol (Vitamin D3) 1,000 units PO DAILY [facility] Last Admin: 11/26/18 08:19 Dose: 1,000 units Cyanocobalamin (Vitamin B-12) 2,500 mcg PO DAILY [facility] Last Admin: 11/26/18 08:19 Dose: 2,500 mcg Cyclobenzaprine HCl (Flexeril) 10 mg PO TIDPRN PRN PRN Reason: Muscle Spasm Last Admin: 11/25/18 20:28 Dose: 10 mg Fish Oil (Fish Oil) 1,000 mg PO DAILY [facility] Last Admin: 11/26/18 08:21 Dose: 1,000 mg Guaifenesin (Robitussin Sf) 200 mg PO Q4H PRN PRN Reason: Cough Hydralazine HCl (Apresoline) 10 mg SLOW IVP Q4H PRN PRN Reason: SBP > 180 and HR < 70 Piperacillin Sod/Tazobactam (Sod 4.5 gm/ Sodium Chloride) 100 mls @ 200 mls/hr IVPB Q6HR [facility] Last Admin: 11/26/18 05:33 Dose: 100 mls Vancomycin HCl 1.5 gm/ Sodium (Chloride) 300 mls @ 200 mls/hr IVPB 0600,1800 [facility] Last Admin: 11/26/18 06:29 Dose: 300 mls Ketorolac Tromethamine (Toradol) 15 mg IVP Q6H PRN PRN Reason: Mild Pain (1-3) Stop: 11/29/18 10:58 Loperamide HCl (Imodium) 2 mg PO PRN PRN PRN Reason: Diarrhea/Loose Stools Loratadine (Claritin) 10 mg PO DAILYPRN PRN PRN Reason: Sinus Symptoms Miscellaneous Medication (Pharmacy To Dose) 1 each IVPB PRN PRN PRN Reason: . Morphine Sulfate (Morphine) 2 mg SLOW IVP Q4H PRN PRN Reason: Severe Pain (7-10) Ondansetron HCl (Zofran Odt) 4 mg PO Q6H PRN PRN Reason: Nausea/Vomiting Ondansetron HCl (Zofran) 4 mg IVP Q6H PRN PRN Reason: Nausea/Vomiting Pantoprazole Sodium (Protonix) 40 mg PO BID [facility] Last Admin: 11/26/18 08:21 Dose: 40 mg Prednisone (Prednisone) 60 mg PO QAM[facility] Last Admin: 11/26/18 08:20 Dose: 60 mg Saccharomyces Boulardii (Florastor) 250 mg PO DAILY [facility] Last Admin: 11/26/18 08:19 Dose: 250 mg Senna/Docusate Sodium (Senokot S) 2 tab PO BID PRN PRN Reason: Constipation Sodium Chloride ([place] Nasal [place] 0.65%) 0 ml EA NARE QIDPRN PRN PRN Reason: Nasal Congestion Temazepam (Restoril) 15 mg PO HSPRN PRN PRN Reason: Insomnia Throat Lozenges (Cepastat Lozenges) 1 paige PO Q2H PRN PRN Reason: Sore Throat
--- NOTE | 2018-11-26 13:34 | SPC ---
PICC placement Ultrasound-guided venous access: (Peripherally inserted central catheter) DATE: 11/26/2018 HISTORY: 72-year-old male with septicemia requiring long-term IV antibiotics. TECHNIQUE: Catheter caliber: 5 [place] Catheter trim length:43 cm Catheter lumen number:double Catheter tip location:Superior vena cava/right atrial junction Vein accessed:left basilic Total fluoroscopy time: 0.5 min. Dose area product: 1751 mGy*cm^2 Signed, informed consent was obtained. A tourniquet was applied at the proximal aspect of the arm. Th e arm was prepped and draped in the usual sterile fashion. A 25-gauge needle was used to applied buffered lidocaine superficially. The vein was punctured with a 21-gauge micropuncture needle under u ltrasound guidance. A 0.018 inch guidewire was advanced through the micropuncture needle and into the vein. Under fluoroscopic guidance, the guidewire was advanced to the superior vena cava. The PICC was flushed and trimmed to the appropriate length. The micropuncture needle was exchanged over the guidewire for a 5 [place] peel-away dilator sheath. The dilator was exchanged over the guidewire for t he PICC, which was then further advanced under fluoroscopy. The sheath and guidewire were removed. The PICC was flushed again and secured in place at the arm after adjustment of tip position. The juani ent tolerated the procedure well. There was no complication. IMPRESSION: Successful placement of PICC (peripherally inserted central catheter).
[2018-11-26 15:37] VITALS: BP 95/46; TEMP 97.6
--- NOTE | 2018-11-26 17:24 | DIS ---
DATE OF ADMISSION: 11/21/2018 DATE OF DISCHARGE: 11/26/2018 PRIMARY CARE PHYSICIAN: [facility] Call admission. DISCHARGE DISPOSITION: Rehab. PRIMARY DISCHARGE DIAGNOSES: Acute diverticulitis, abnormal LFT due to sepsis, suspected diskitis/osteomyelitis of spine, acute back pain, sepsis secondary to urinary tract infection, sepsis with acute organ dysfunction, thrombocytopenia due to sepsis, and foot ulcer. SECONDARY DISCHARGE DIAGNOSES: Myasthenia gravis, macrocytic anemia, chronic obstructive pulmonary disease, and coronary artery disease. PRIMARY PROCEDURE/OPERATION: PICC line. RADIOLOGICAL INVESTIGATION: Abdomen and pelvis CT scan, foot x-ray, ultrasound of lower extremity, chest x-ray, lumbar spine MRI, and echocardiography. SIGNIFICANT LABORATORY DATA: Hemoglobin 11.2. INR 1.2. Creatinine 0.65. Urinalysis suggestive of UTI. Hepatitis profile. HIV negative. Syphilis negative. Blood culture positive for Staph aureus, Enterococcus. Urine culture positive for E coli. Repeat blood culture negative. DISCHARGE MEDICATIONS: 1. Rocephin 2 g IV daily till January 05, 2019. 2. Vancomycin 1.5 g IV q.12 hourly till January 05, 2019. The patient will need weekly vancomycin trough, CBC, CMP, CRP. The patient will continue following medications; 1. Aspirin 81 mg daily. 2. Coreg 3.125 mg p.o. b.i.d. 3. Vitamin D3 of 1000 units p.o. daily. 4. Vitamin B12 of 2500 mcg daily. 5. Magnesium 100 mg daily. 6. Fish oil 1 capsule daily. 7. Protonix 40 mg b.i.d. 8. Prednisone 60 mg p.o. as directed. 9. Zocor 40 mg p.o. at bedtime. CONTRAINDICATION: None. CODE STATUS: Full code. INPATIENT BATTERY ASSEMBLER: Dr. Jaiems was consulted while in hospital. TEST RESULTS PENDING ON DISCHARGE: None. ALLERGIES: NO KNOWN DRUG ALLERGIES. DISCHARGE PLAN: Posthospital, the patient will follow up with Dr. Kalpesh Jaimes as instructed. The patient will make appointment with primary care physician. HOSPITAL COURSE: A 72-year-old male, who was admitted by family medicine physician. Please see their H and P for further details. The patient's primary care physician is Dr. Andres and that is why family medicine has given over to us to take care of this patient. Since then, we were following this patient. The patient had an acute diverticulitis and urinary tract infection. He was having worsening back pain. He also had abnormal LFT, everything was related with sepsis. As the patient's back pain was unbearable, that is why we did lumbar spine MRI and based on that finding, the patient was suspected for osteomyelitis of spine or back with diskitis. Dr. Jaimes was thinking that this patient most likely has that diagnosis even though MRI report was not consistent. Echocardiography was unremarkable. The patient was treated with Zosyn and Flagyl and subsequently, antibiotic was changed to vancomycin and Zosyn. On discharge, Dr. Jaimes recommended vancomycin and Rocephin till January 05, 2019, for long-term antibiotic therapy. PICC line was placed. The patient was completely asymptomatic while in hospital. He was doing relatively well. His thrombocytopenia improved. His sepsis resolved. The patient is up to his baseline, but he needs more therapy and that is why with help of director of casework department, we arranged rehabilitation. The patient is seen and examined at bedside today. Please see my progress note from today for further details. Total time spent on discharge day, 31 minutes. Job ID: [id number]
== END 2018-11-26 19:05 | DRG 872 ==
LOC: ERS 16:57 → SURG A 22:12
PROVIDERS: ADMIT Family Medicine; ATTEND Family Medicine
PROC: 02HV33Z Insertion of Infusion Device into Superior Vena Cava, Percutaneous Approach (ICD-10-PCS; principal; 2018-11-26)
PROC: B548ZZA Ultrasonography of Superior Vena Cava, Guidance (ICD-10-PCS; 2018-11-26)
DX: A41.9 Sepsis, unspecified organism (principal); N39.0 Urinary tract infection, site not specified; K57.32 Diverticulitis of large intestine without perforation or abscess without bleeding; E87.2 Acidosis; R65.20 Severe sepsis without septic shock; J44.9 Chronic obstructive pulmonary disease, unspecified; G70.00 Myasthenia gravis without (acute) exacerbation; N40.0 Benign prostatic hyperplasia without lower urinary tract symptoms; I25.10 Atherosclerotic heart disease of native coronary artery without angina pectoris; D53.9 Nutritional anemia, unspecified; E80.6 Other disorders of bilirubin metabolism; L89.892 Pressure ulcer of other site, stage 2; D69.59 Other secondary thrombocytopenia; Z79.82 Long term (current) use of aspirin; Z79.52 Long term (current) use of systemic steroids; Z79.899 Other long term (current) drug therapy; Z95.5 Presence of coronary angioplasty implant and graft; Z90.49 Acquired absence of other specified parts of digestive tract
CPT/HCPCS: 36415; 36569; 71045; 72158; 74177; 76705; 80048; 80053; 80202; 81003; 81015; 82550; 83605; 85025; 85610; 85730; 86140; 86706; 86709; 86780; 86803; 87040; 87077; 87086; 87149; 87186; 87340; 87389; 93306; 96361; 96365; C1751; J0696; J1644; J2405; J2543; J3370; J3490; J7050; J7512; Q9966

== ENCOUNTER 2018-12-09 06:08 | Day surgery (SDC) | payer MEDICARE, OTHER ==
[2018-12-08 12:02] VITALS: BMI 25.3
[2018-12-09] MEDS ORDERED: PROPOFOL 20 ML ONE (07:09)
[2018-12-09] MEDS ORDERED: Lidocaine 1% PF 5 ML VIAL ONE (07:15)
--- NOTE | 2018-12-09 10:54 | OP ---
DATE OF PROCEDURE: 12/09/2018 PREPROCEDURE DIAGNOSES: Recurrent fever and assess for endocarditis. POSTPROCEDURE DIAGNOSIS: Aortic valve endocarditis. PROCEDURE PERFORMED: REBECCA. DESCRIPTION OF PROCEDURE: Conscious sedation performed with anesthesia. The probe passed easily into esophagus. No complications. FINDINGS: Overall LVEF estimated at 55% to 60%. Mitral valve is well visualized. No masses or vegetation present. The left atrium also is well visualized. No masses or vegetations. The aortic valve has a bioprosthetic valve in place. There is a small, mobile mass present on the LVOT side of the prosthetic aortic valve. The RA and RV are of normal size and function. The tricuspid valve is free of vegetation. IMPRESSION: 1. Strongly suggestive of aortic valve vegetation as described above. 2. Incidental finding of new onset atrial fibrillation versus flutter. 3. Add Eliquis 5 mg one p.o. b.i.d. Job ID: [id number]
== END 2018-12-09 09:28 | disposition home or self-care (01) ==
LOC: CCL 06:08
PROVIDERS: ATTEND Internal Medicine Cardiovascular Disease
PROC: B246ZZ4 Ultrasonography of Right and Left Heart, Transesophageal (ICD-10-PCS; principal; 2018-12-09)
DX: I35.8 Other nonrheumatic aortic valve disorders (principal); K21.9 Gastro-esophageal reflux disease without esophagitis; E78.00 Pure hypercholesterolemia, unspecified; J44.9 Chronic obstructive pulmonary disease, unspecified; Z79.82 Long term (current) use of aspirin; Z79.52 Long term (current) use of systemic steroids; Z79.899 Other long term (current) drug therapy; Z95.2 Presence of prosthetic heart valve; Z95.5 Presence of coronary angioplasty implant and graft; Z98.890 Other specified postprocedural states
CPT/HCPCS: 93312; J2001; J2704

== ENCOUNTER → 2018-12-16 | Day surgery (SDC) | payer MEDICARE, OTHER ==
[~2018-12-16] MED LIST changes: -Heparin 1,000 UNITS/ML VIAL ONE; -ISOVUE-370 76%-LOCM 1 ML ONE; +Oxacillin 2 GM in Sodium Chloride 0.9% 100 ML IVPB SCH; +Sodium Chloride 0.9% 20 ML ONE
[2018-12-16 12:25] VITALS: BP 135/62; TEMP 97.5
== END ==
LOC: ONC/OP 12:02
PROVIDERS: ATTEND Internal Medicine Infectious Disease
DX: I33.0 Acute and subacute infective endocarditis (principal)
CPT/HCPCS: 96365; 96366; J1580; J1642; J2700; J3490